=== PATIENT | female | born 1970 | race American Indian/Alaskan Native ===

== ENCOUNTER → 2016-07-03 | Outpatient (CLI) | payer BC ==
--- NOTE | 2016-07-04 06:49 | PAP/PSG TECHNICIAN REPORT ---
[facility] Cleaner Greaser Polysomnogram Report Study name: None Report date: 07/04/2016 Study date: 07/03/2016 Referring Physician: Steve Fisher M.D. Name: ADONIS HARE Interpreting Physician: Steve Fisher M.D. Date of : 1970 Cleaner Greaser: Adri Abrams RPS. Sex: Female Age: 45 StudyType: PSG Weight: 69.4 kgs Height: 45 years, Height 5' 4.96" Neck Circum:12.5 inches BMI: Medications: Amitriptyline, Svrqjacvkl-EJXL-Zseiadl, CoQ 10, Cranberry, Cymbalta 60 mg, D 2000, Excitalopram 10 mg, Feverfew, Fish Oil 1000, Lidocaine 5 %, Magnesium, Riboflavin, Turmeric, Vitamin C, Zinc 100, Zoloft Patient History 45 yr. old female here for a diagnostic sleep study. Patient complains of consistent migraine headaches, EDS, and witnessed apneas. Patients [place] sleepiness scale score is 8/24. Parameters Monitored NPSG: E1-M2, E2-M1, Fp1-M2, Fp2-M1, F3-M2, F4-M2, F4-M1, C3-M2, C4-M2, C4-M1, O1-M2, O2-M2, O2-M1, T3-M2, T4-M1, P3-M2, P4-M1, CHIN1, CHIN2, HR, EKG, Legs, PFLOW, SNOR, FLOW, CFLOW, Tidal Volume, THOR, ABDO, SpO2, PLTH, CPRESS, ETCO2 Wave, ETCO2, pH Sleep Architecture Sleep Stages Time at Lights Off 8:50:41 PM STAGES Time (min.) TST (%) Time at Lights On 6:12:11 AM Wake 25.5 -- Total Recording Time (TRT) 562.00 min. N1 19.5 4 Total Sleep Period (TSP) 559.0 min. N2 244.0 46 Total Sleep Time (TST) 536.0min. N3 105.5 20 Awake Time 25.5 min. REM 167.0 31 Wake after Sleep Onset 23.0 min. Sleep Efficiency (SE) 95 % Sleep Onset Latency (SAL) 2.5 min. Number of Stage 1 Shifts None Awakenings 20 Stage Changes 100 Number of REM periods 11 REM 167.0 31 REM Latency 79.5 min. NREM 369.0 69 Body Position Analysis Supine Right Left Side Prone Vertical Total Sleep Time (min.) 164.6 258.0 132.4 390.41 0.0 0.1 Total Sleep Time (%) 27% 48% 25% 73 0% N/A% Total Sleep Time REM (min.) 44.0 71.5 51.5 None 0.0 0.0 Total Sleep Time NREM (min.) 101.6 186.5 80.9 None 0.0 0.0 Intermittent Wake (min.) 19.0 3.9 2.5 None 0.0 0.1 Total Sleep Period (%) 29% None None None None None Arousals Myoclonus (PLM) * Events Count Index Events Count Index Spontaneous 7 1 Events Awake (PLMW) 24 56.5 Respiratory 1 0.2 Events Asleep w/ Arousal (PLMA) 15 1.7 PLM 15 2 Events Asleep w/o Arousal (PLMS) 65 7.3 Snoring 0 0 Total Asleep 80 9.0 Total 23 3 Total 104 11 Respiratory Analysis * CA OA MA CH H RERA Total Count 0 1 0 0 17 0 18 Index 0.0 0.1 0.0 0 1.9 0 2.0 Mean Duration 0.0 14.1 0.0 0.00 29.5 0.0 28.7 Longest Duration 0.0 14.1 0.0 0.00 0.0 0.0 82.0 Respiratory Event Summary Total Supine ~Supine Right Left Prone REM NREM Apneas Count 1 0 1 0 1 N/A 0 1 Index 0.1 0 0 0.0 0.5 N/A 0 0 Hypopneas (4% Desat) Count 17 3 14 9 5 N/A 10 7 Index 1.9 1.2 2 2.1 2.3 N/A 3.6 1.1 Apneas & All Hypopneas Count 18 3 15 9 6 N/A 10 8 Index 2.0 1 2 2 3 N/A 3.6 1.3 Respiratory Events (Securities And Real Estate Director+All Hyp+RERA) Count 18 3 15 9 6 N/A 10 8 Index 2.0 1 2 2.1 2.7 N/A 3.6 1.3 Respiratory Related Arousal Count 1 3 0 0 0 N/A 0 2 Index 0.2 1 0 0 0 N/A 0 0 Snoring Analysis Supine Right Left Prone REM NREM Total Snore duration 5.6 min Snores count 41 148 25 N/A 92 122 214 Snore mean duration 1.6 Sec Snores index 17 34 11 N/A 33.1 19.8 24.0 TST with snoring (%) 1.0% Desaturation Event Summary: Minimum %SpO2 Event Count Mean/Min/Max Duration(sec.) Desaturation Index % Time In Bed > 90 20 31.6 / 9.0 / 60.0 2.2 99.8 86 - 90 0 N/A 0.0 0.1 81 - 85 0 N/A 0.0 0.0 76 - 80 0 N/A 0.0 0.0 71 - 75 0 N/A 0.0 0.0 66 - 70 0 N/A 0.0 0.0 61 - 65 0 N/A 0.0 0.0 56 - 60 0 N/A 0.0 0.0 51 - 55 0 N/A 0.0 0.0 < 50 0 N/A 0.0 0.0 Total REM NREM Awake <50% 0.0 min. 0.0 min. 0.0 min. 0.0 min. 51 - 60% 0.0 min. 0.0 min. 0.0 min. 0.0 min. 61 - 70% 0.0 min. 0.0 min. 0.0 min. 0.0 min. 71 - 80% 0.0 min. 0.0 min. 0.0 min. 0.0 min. 81 - 90% 1.0 min. 0.8 min. 0.0 min. 0.2 min. 91 - 100% 555.5 min. 166.2 min. 369.0 min. 20.3 min. Average 95 95 95 95 Minimum SpO2 83 88 90 83 Desaturation Event Index 2.1 3.2 1.5 9.4 # Desat. Events below 89% N/A N/A N/A N/A Time(%) with Saturation below 89% 0.1 0.0 0.0 0.0 Time(min.) with Saturation below 89% 0.4 0.2 0.0 0.2 Time (mins) REM (mins) NREM (mins) % of TST SpO2 Below 90% 2 2 N0 0.1 SpO2 Below 88% 0 0 0 0 Heart Rate Analysis Min (bpm) Max (bpm) Average (bpm) Awake 62 106 83 NREM 56 113 75 REM 58 96 74 Overall 56 113 74 Supplemental O2 Values Minimum O2 level: None Value Start Time End Time Cleaner Greaser Comments MS. Hare slept in the right, left, and supine positions. No cardiac arrhythmia or PLMs noted. No bruxism noted. Snoring was noted and scored as a 1 on a scale of 0 through 5. (0=no snoring, 5=snoring loud enough to be heard through a closed door or down the nettles way) MS. Hare awoke to use the restroom once during the night. MS. Hare stated, "That was a good night's sleep. The final report will be interpreted and signed by a sleep physician. The completed physician report will then be placed in the patient medical record. Therapy (cm H2O) 0 TIB (min.) 561.5 TST (min.) 536.0 Sleep Onset (min.) 2.5 REM Onset From Sleep (min.) 79.5 Sleep Efficiency % 95 Wakefulness (%) 5 Wakefulness (min.) 25.5 NREM 1 (%) 4 NREM 1 (min.) 19.5 NREM 2 (%) 46 NREM 2 (min.) 244.0 NREM 3 (%) 20 NREM 3 (min.) 105.5 REM (%) 31 REM (min.) 167.0 # Arousals 23 Arousal Index 3 # Snore 214 Snore Index 24.0 AHI 2.0 AHI Supine 1 AHI Non-Supine 2 NREM AHI 1.3 REM AHI 3.6 RDI 2.0 # Obstructive Apnea 1 # Central Apnea 0 # Mixed Apnea 0 # Hypopneas 17 RERAs 0 Total Respiratory Events 20 Time Below SpO2 89% (min.) 0.2 Mean NREM SpO2 (%) 95 Mean REM SpO2 (%) 95 Mean Sleep SpO2 (%) 95 Min NREM SpO2 (%) 90 Min REM SpO2 (%) 88 Position Supine (min.) 164.6 Position Non-supine (min.) 390.4 LM Index Sleep 9.0 LM Index NREM 10.1 LM Index REM 6.5 Mean Heart Rate (bpm) 74 Min Heart Rate (bpm) 56
--- NOTE | 2016-07-05 10:14 | POLYSOMNOGRAPH REPORT ---
CLINICAL DATA: 45-year-old female with a height of 5 feet 5 inches and a weight of 69.4 kilograms referred for a history of constant migraine headaches, excessive daytime sleepiness and witnessed apnea. Her [place] sleepiness score was 8/24. SLEEP ARCHITECTURE: Total sleep period was 559 minutes. Total sleep time was 536 minutes divided between 369 minutes of non-REM sleep and 167 minutes of REM sleep. Sleep onset latency was 2.5 minutes. REM latency was 79.5 minutes. Sleep efficiency was 95%. Awake after sleep onset was 23 minutes. Sleep consisted of stage N1 4%, N2 246%, N3 20%, REM 31%. AROUSAL DATA: 23 arousals were recorded for an index of 3 per hour. PLM DATA: 80 limb movements during sleep were noted for an index of 9 per hour with arousal index of 1.7 per hour. RESPIRATORY DATA: There was no evidence of clinically significant sleep apnea/hypopnea noted. The AHI was 2. There was 1 obstructive apneic episode, 14.1 seconds in duration. There were 17 hypopneic episodes, the mean duration of hypopnea was 29.5 seconds. OXIMETRY DATA: No hypoxemia was seen. Oxygen isiah was 88%. Mean saturation was 95%. EKG: Heart rates ranged from 56-113 beats per minute. No arrhythmias were noted. GLOBAL SALES MANAGER'S COMMENTS: The patient slept in the right, left, and supine positions. Snoring was mild, rated 1 on a scale of 1-5. The patient awoke once to use the restroom. IMPRESSION: No evidence of clinically significant sleep apnea/hypopnea, nocturnal hypoxemia or abnormal limb movement events during sleep to explain this patient's symptoms. RECOMMENDATIONS: The patient should continue to practice good sleep hygiene. PEDRO
== END | disposition home or self-care (01) ==
LOC: C.NEUR 20:00
PROVIDERS: ATTEND Internal Medicine Pulmonary Disease
DX: G47.19 Other hypersomnia (principal); G43.909 Migraine, unspecified, not intractable, without status migrainosus; R06.81 Apnea, not elsewhere classified

== ENCOUNTER → 2016-07-12 | Outpatient (CLI) | payer BC ==
[~2016-07-12] VITALS: Ht 162.6 cm; Wt 71.1 kg
[2016-07-12 16:32] VITALS: BP 103/70; PULSE 91; Ht 162.6 cm; Wt 71.1 kg
== END | disposition home or self-care (01) ==
LOC: C.NEUR 15:39
PROVIDERS: ATTEND Internal Medicine Pulmonary Disease
DX: G47.9 Sleep disorder, unspecified (principal); R53.83 Other fatigue

== ENCOUNTER → 2016-07-15 | Outpatient (CLI) | payer BC ==
--- NOTE | 2016-07-15 15:21 | MAMMOGRAPHY REPORT ---
BILATERAL DIGITAL SCREENING MAMMOGRAM TOMOSYNTHESIS WITH CAD: 07/15/2016 CLINICAL HISTORY: Routine screening. Patient has no complaints. TECHNIQUE: Breast tomosynthesis in addition to standard 2D mammography was performed. Current study was also evaluated with a Computer Aided Detection (CAD) system. COMPARISON: Comparison is made to exams dated: 07/07/2015 mammogram, 08/27/2013 mammogram, 02/12/2013 u ltrasound, 02/12/2013 mammogram, 02/06/2013 mammogram, and 01/30/2012 mammogram - [facility]. BREAST COMPOSITION: The tissue of both breasts is heterogeneously dense, which may obscure small ma sses. FINDINGS: No suspicious masses, calcifications, or areas of architectural distortion are noted in e ither breast. There has been no significant interval change compared to prior exams. Small cluster of benign-appearing calcifications in the left 3:00 breast are stable dating back to at least the 12 exam. IMPRESSION: ACR BI-RADS CATEGORY 2: BENIGN There is no mammographic evidence of malignancy. A 1 year screening mammogram is recommended. The p atient will receive written notification of the results. Approximately 10% of breast cancers are not detected with mammography. A negative mammographic repor t should not delay biopsy if a clinically suggestive mass is present. Rosi Beckford M.D. /:07/15/2016 14:49:14 Shirt Bander: Stephanie Babcock, [facility] letter sent: Normal 1/2 BI-RADS Code: ACR BI-RADS Category 2: Benign
== END | disposition home or self-care (01) ==
LOC: C.MAMM 14:06
PROVIDERS: ATTEND Obstetrics & Gynecology
DX: Z12.31 Encounter for screening mammogram for malignant neoplasm of breast (principal)

== ENCOUNTER → 2017-04-06 | Outpatient (CLI) | payer BC ==
[2017-04-06 10:56] LABS: HEMATOCRIT 42.5 % (37-47); MEAN CELL VOLUME 89.3 fL (80-100); MEAN CORPUSCULAR HEMOGLOBIN 28.8 pg (25-34); MEAN CORPUSCULAR HGB CONC 32.2 g/dl (32-36); MEAN PLATELET VOLUME 10.3 fL (7.4-10.4); PLATELET COUNT 243 K/uL (130-400); RED BLOOD COUNT 4.76 M/uL (4.2-5.4)
[2017-04-06 11:17] LABS: BLOOD UREA NITROGEN 9 mg/dl (7-18); BUN/CREATININE RATIO 12.9 (10-20); CALCIUM 9.2 mg/dl (8.5-10.1); CARBON DIOXIDE 26 mmol/L (21-32); CHLORIDE 106 mmol/L (98-107); CREATININE 0.73 mg/dl (0.60-1.20); GLUCOSE 105 mg/dl (70-99); POTASSIUM 3.9 mmol/L (3.5-5.1); SODIUM 139 mmol/L (136-145)
[2017-04-06 11:29] LABS: FERRITIN 29.6 ng/ml (8.0-388.0); THYROID STIMULATING HORMONE 0.705 uIu/ml (0.300-4.500)
== END | disposition home or self-care (01) ==
LOC: C.LABBC 07:28
PROVIDERS: ATTEND Internal Medicine
DX: R53.83 Other fatigue (principal); G43.909 Migraine, unspecified, not intractable, without status migrainosus; R51 Headache

== ENCOUNTER → 2017-07-17 | Outpatient (CLI) | payer OTHER ==
--- NOTE | 2017-07-17 15:03 | MAMMOGRAPHY REPORT ---
BILATERAL DIGITAL SCREENING MAMMOGRAM TOMOSYNTHESIS WITH CAD: 07/17/2017 CLINICAL HISTORY: Routine screening. Patient has no complaints. TECHNIQUE: Breast tomosynthesis in addition to standard 2D mammography was performed. Current study was also evaluated with a Computer Aided Detection (CAD) system. COMPARISON: Comparison is made to exams dated: 07/15/2016 mammogram, 07/07/2015 mammogram, 02/12/2013 ronald mogram, 02/06/2013 mammogram, and 01/30/2012 mammogram - [facility]. BREAST COMPOSITION: There are scattered areas of fibroglandular density in both breasts. FINDINGS: There is a partially circumscribed 4 mm mass in the 3:00 to 4:00 middle to posterior right breast, for which additional targeted ultrasound and possible additional mammographic views is recom mended. A possible cluster of microcalcifications in the upper outer middle one third of the left br east warrant additional spot magnification views. No other suspicious mass, architectural distortion or cluster of microcalcifications is seen bilatera lly. IMPRESSION: ACR BI-RADS CATEGORY 0: INCOMPLETE EVALUATION: NEED ADDITIONAL IMAGING EVALUATION The partially circumscribed 4 mm mass in the medial right breast and possible cluster of microcalcifi cations in the left upper outer quadrant need additional imaging evaluation. The patient will be called to schedule an appointment. Approximately 10% of breast cancers are not detected with mammography. A negative mammographic report should not delay biopsy if a clinically suggestive mass is present. Laurita Restrepo M.D. ay/:07/17/2017 14:55:17 Director Of Channel Marketing: Stephanie SAAVEDRA([place])(M), [facility] letter sent: Addl Imaging 0 BI-RADS Code: ACR BI-RADS Category 0: Incomplete Evaluation: Need Additional Imaging Evaluation
== END | disposition home or self-care (01) ==
LOC: C.MAMM 14:35
PROVIDERS: ATTEND Obstetrics & Gynecology
DX: Z12.31 Encounter for screening mammogram for malignant neoplasm of breast (principal); N63.14 Unspecified lump in the right breast, lower inner quadrant

== ENCOUNTER → 2017-07-28 | Outpatient (CLI) | payer OTHER ==
--- NOTE | 2017-07-28 14:57 | MAMMOGRAPHY REPORT ---
UNILATERAL LEFT DIGITAL DIAGNOSTIC MAMMOGRAM AND TARGETED RIGHT ULTRASOUND: 07/28/2017 CLINICAL HISTORY: Callback from screening mammogram for right breast mass and left breast calcificati ons. TECHNIQUE: Spot magnification left CC and ML views were obtained. COMPARISON: Comparison is made to exams dated: 07/17/2017 mammogram, 07/15/2016 mammogram, 07/07/2015 ronald mogram, 08/27/2013 mammogram, 02/06/2013 mammogram, and 01/30/2012 mammogram - [facility]. BREAST COMPOSITION: The tissue of the left breast is heterogeneously dense, which may obscure small masses. FINDINGS: Spot magnification views of the left breast demonstrate a small 3 mm cluster of punctate ca lcifications within the left lateral breast at approximately 3:00. The calcifications appear stable compared to multiple prior exams including the 2015 exam and MLO views from the 2012 and 2011 exams. Given the long-term stability and benign morphology, the calcifications are considered benign. Targeted ultrasound was performed of the right breast in the region of the circumscribed mammographic mass seen on the recent screening mammogram. In the right breast at 2:00, 5 cm from the nipple, the re is an oval circumscribed hypoechoic 4 x 3 x 3 mm mass. This is felt to correspond with the circum scribed mammographic mass and likely represents a cyst although does not meet all the sonographic cri teria. The options of short interval follow-up versus aspiration/biopsy were discussed with the christian ent. Given the strong family history of breast cancer including her mother who was diagnosed in her 50s, the patient prefers to undergo aspiration/biopsy for definitive characterization. IMPRESSION: ACR BI-RADS CATEGORY 4: SUSPICIOUS, TARGETED ULTRASOUND ACR BI-RADS CATEGORY 4: SUSPICIO US 1. Circumscribed 4 mm mass in the right breast at 2:00 on ultrasound, which corresponds with a circu mscribed mammographic mass. The mass may represent a cyst although does not meet all of the sonograp hic criteria. Recommend ultrasound-guided aspiration, with conversion to biopsy if the mass does not aspirate. 2. Small cluster of punctate calcifications in the left 3:00 breast is stable dating back to at leas t the 2011 exam and is considered benign given long-term stability. A phone call was made to the physician's office to confirm faxed results were received. The patient has been verbally notified of the results. She tentatively scheduled the procedure before leaving e department. Approximately 10% of breast cancers are not detected with mammography. A negative mammographic report should not delay biopsy if a clinically suggestive mass is present. Rosi Beckford M.D. ah/:07/28/2017 12:04:15 Jalousies Installer: Gemini SAAVEDRA([place])(M), [facility] letter sent: Abnormal 4/5 BI-RADS Code: ACR BI-RADS Category 4: Suspicious Ultrasound BI-RADS: ACR BI-RADS Category 4: Suspici ous
== END | disposition home or self-care (01) ==
LOC: C.MAMM 10:55
PROVIDERS: ATTEND Obstetrics & Gynecology
DX: N63.10 Unspecified lump in the right breast, unspecified quadrant (principal); R92.1 Mammographic calcification found on diagnostic imaging of breast

== ENCOUNTER → 2018-01-22 | Outpatient (CLI) | payer OTHER ==
[~2018-01-22] MED LIST: ONDA4TAB10 SL
--- NOTE | 2018-01-22 09:51 | DIAGNOSTIC IMAGING REPORT ---
CERVICAL SPINE 2 OR 3 VIEWS HISTORY: Dysphagia pain COMPARISON: None. FINDINGS: The cervical spine is visualized from C1 through the superior endplate of T1. There is no fracture. No subluxation. Disc spaces are preserved. Prevertebral soft tissues and the atlantodens interval are intact. IMPRESSION: No fracture or subluxation within the cervical spine. The above report was generated using voice recognition software. It may contain grammatical, syntax or spelling errors. Electronically signed by: Manuel Velasco M.D. 01/22/2018 9:49 AM Dictated Date/Time: 01/22/2018 9:49 AM
== END | disposition home or self-care (01) ==
LOC: C.RAD1850 09:15
PROVIDERS: ATTEND Nurse Practitioner Adult Health
DX: S19.9XXA Unspecified injury of neck, initial encounter (principal); X58.XXXA Exposure to other specified factors, initial encounter

== ENCOUNTER → 2018-01-23 | Outpatient (CLI) | payer OTHER ==
--- NOTE | 2018-01-23 09:43 | DIAGNOSTIC IMAGING REPORT ---
ULTRASOUND ABDOMEN COMPLETE CLINICAL HISTORY: Generalized abdominal pain. Nausea. COMPARISON STUDY: Abdominal ultrasound dated 07/29/2009. TECHNIQUE: Real-time, grayscale, and color flow sonography of the abdomen was performed. Images are reviewed in the transverse and longitudinal planes. FINDINGS: Liver: The liver is normal in size and echotexture. There is no intrahepatic biliary ductal dilatation. The main portal vein is patent. Gallbladder: A 3 mm gallbladder polyp is incidentally noted. The gallbladder is normal in appearance. No gallstones are identified. There is no gallbladder wall thickening or pericholecystic fluid. A sonographic Ott's sign is reportedly absent. The common bile duct measures up to 0.8 cm in diameter. Pancreas: Visualized portions of the pancreatic head and body are normal in appearance. Spleen: The spleen is normal in size and echotexture, measuring 8.7 cm in length. Kidneys: The kidneys are normal in size and echotexture. There is no hydronephrosis. The right kidney measures 10.7 cm in length and the left kidney measures 10.0 cm in length. No shadowing calculi are identified. A subcentimeter cyst is noted in the right lower pole. Abdominal vasculature: Visualized portions of the abdominal aorta and IVC are normal as imaged. Ascites: None. IMPRESSION: 1. No acute sonographic abnormality is identified. 2. No gallstones are seen. Electronically signed by: All Poe M.D. 01/23/2018 9:42 AM Dictated Date/Time: 01/23/2018 9:37 AM
== END | disposition home or self-care (01) ==
LOC: C.ULTRBC 08:30
PROVIDERS: ATTEND Nurse Practitioner Adult Health
DX: R11.0 Nausea (principal); R10.9 Unspecified abdominal pain

== ENCOUNTER → 2018-01-31 | Outpatient (CLI) | payer OTHER ==
[2018-01-31 19:04] LABS: BASO % 0.6 %; BASO ABS # 0.03 K/uL (0-0.2); EOS % 0.4 %; EOS ABS # 0.02 K/uL (0-0.5); HEMATOCRIT 41.1 % (37-47); HEMOGLOBIN 13.5 g/dL (12.0-16.0); IG# 0.01 K/uL (0.00-0.02); LYMPH % 25.5 %; LYMPH ABS # 1.33 K/uL (1.2-3.4); MEAN CELL VOLUME 90.5 fL (80-100); MEAN CORPUSCULAR HEMOGLOBIN 29.7 pg (25-34); MEAN CORPUSCULAR HGB CONC 32.8 g/dl (32-36); MEAN PLATELET VOLUME 10.4 fL (7.4-10.4); MONO % 1.9 %; NEUT % 71.4 %; NEUT ABS # 3.73 K/uL (1.4-6.5); PLATELET COUNT 231 K/uL (130-400); RED CELL DISTRIBUTION WIDTH CV 12.7 % (11.5-14.5); RED CELL DISTRIBUTION WIDTH SD 41.7 fL (36.4-46.3); WHITE BLOOD COUNT 5.22 K/uL (4.8-10.8)
[2018-01-31 19:34] LABS: ALBUMIN 4.1 gm/dl (3.4-5.0); ALKALINE PHOSPHATASE 131 U/L (45-117); ALT/SGPT 15 U/L (12-78); AST/SGOT 17 U/L (15-37); BLOOD UREA NITROGEN 10 mg/dl (7-18); CALCIUM 9.4 mg/dl (8.5-10.1); CARBON DIOXIDE 27 mmol/L (21-32); CREATININE 0.64 mg/dl (0.60-1.20); GLUCOSE 101 mg/dl (70-99); SODIUM 140 mmol/L (136-145); TOTAL PROTEIN 8.1 gm/dl (6.4-8.2)
== END | disposition home or self-care (01) ==
LOC: C.LAB 17:53
PROVIDERS: ATTEND Nurse Practitioner Adult Health
DX: R51 Headache (principal); R53.83 Other fatigue; R11.0 Nausea

== ENCOUNTER → 2018-02-05 | Outpatient (CLI) | payer OTHER ==
[~2018-02-05] MED LIST changes: +GADAVIST IV PRN
--- NOTE | 2018-02-05 13:35 | DIAGNOSTIC IMAGING REPORT ---
Brain MRI WITH AND WITHOUT CONTRAST HISTORY: R51 [id number] Postconcussion [id number] TECHNIQUE: Multiplanar multisequence MRI of the brain was performed both before and after the intravenous administration of contrast. COMPARISON STUDY: Brain MRI 03/26/2015. FINDINGS: There are no areas of restricted diffusion to suggest acute infarction. The midline structures are intact. The paranasal sinuses are clear. The mastoid air cells are clear. The ventricles and sulci are within normal limits for age. There is no mass, hematoma, midline shift. The major vascular flow-voids at the skull base are well maintained. Postcontrast sequences show no areas of abnormal enhancement. There are few punctate foci of T2 hyperintensity within the white matter which remain unchanged. These are of doubtful clinical significance. IMPRESSION: No significant change compared to the prior study. No acute intracranial abnormality. Electronically signed by: Ezio Garcia M.D. 02/05/2018 1:34 PM Dictated Date/Time: 02/05/2018 1:21 PM
== END | disposition home or self-care (01) ==
LOC: C.MRIBC 12:22
PROVIDERS: ATTEND Physician Assistant
DX: F07.81 Postconcussional syndrome (principal); R51 Headache; R11.0 Nausea